=== PATIENT | male | born 1985 | race Caucasian/White ===

== ENCOUNTER 2018-02-26 21:13 | Emergency (ER) | payer SELFPAY ==
[~2018-02-26] VITALS: Ht 172.7 cm; Wt 68.0 kg
[2018-02-26 21:17] VITALS: Ht 172.7 cm; Wt 68.0 kg
[2018-02-26 23:26] VITALS: BP 127/73
== END 2018-02-26 23:26 | disposition home or self-care (01) ==
LOC: ED 21:13
DX: S81.811A Laceration without foreign body, right lower leg, initial encounter (principal); W01.0XXA Fall on same level from slipping, tripping and stumbling without subsequent striking against object, initial encounter; Y93.39 Activity, other involving climbing, rappelling and jumping off; Y92.89 Other specified places as the place of occurrence of the external cause; Y99.8 Other external cause status
CPT/HCPCS: 90715; J0690; J2001